=== PATIENT | female | born 1980 | race Caucasian/White ===

== ENCOUNTER 2025-04-30 23:15 | Emergency (ER) | payer BC ==
[2025-05-01] MEDS ORDERED: Sodium Chloride 0.9% 10 ML Syringe FLUSH PRN (00:30)
[2025-05-01 00:54] LABS: BASOPHILS PERCENT AUTO 0.2 % (0.0-1.0); EOSINOPHILS PERCENT AUTO 0.2 % (0.0-6.0); HEMATOCRIT 42.3 % (37.0-47.0); HEMOGLOBIN 13.7 gm/dl (12.0-16.0); IMMATURE GRAN ABSOLUTE AUTO 0.12 K/mm3 (0.00-0.05); IMMATURE GRAN PERCENT AUTO 0.7 % (0.0-0.4); LYMPHOCYTES ABSOLUTE AUTO 1.1 K/mm3 (1.0-4.8); LYMPHOCYTES PERCENT AUTO 6.7 % (24.0-44.0); MEAN CORPUSCULAR HEMOGLOBIN 27.8 pg (28.0-32.0); MEAN CORPUSCULAR HGB CONC 32.4 g/dl (32.0-36.0); MEAN CORPUSCULAR VOLUME 85.8 fl (83.0-99.0); MEAN PLATELET VOLUME 9.6 fl (9.4-12.3); MONOCYTES ABSOLUTE AUTO 1.1 K/mm3 (0.0-0.8); MONOCYTES PERCENT AUTO 6.2 % (0.0-8.0); NEUTROPHILS ABSOLUTE AUTO 14.5 K/mm3 (1.8-7.7); PLATELET COUNT,PLT 230 K/mm3 (150-400); RED BLOOD CELL COUNT 4.93 M/mm3 (4.10-5.30); WHITE BLOOD CELL COUNT,WBC 16.89 K/mm3 (3.9-11.3)
[2025-05-01 01:15] LABS: A/G RATIO 0.9 (1-2); ALBUMIN 3.4 g/dl (3.4-5.0); ANION GAP 14.6 (5-15); BILIRUBIN TOTAL 1.3 mg/dL (0.2-1.0); BUN/CREATININE RATIO 21.4 (14-18); CALCIUM 8.9 mg/dL (8.5-10.1); CREATININE 0.7 mg/dL (0.55-1.02); EST CRCL DRUG DOSING (CG) 86.6 mL/min; MAGNESIUM 1.6 mg/dL (1.8-2.4); POTASSIUM,K 3.6 mEq/L (3.5-5.1); PROTEIN TOTAL,TP 7.1 g/dl (6.4-8.2)
[2025-05-01] MEDS: Sodium Chloride 0.9% 1,000 ML IV ONE (01:15)
[2025-05-01 01:20] LABS: APPEARANCE,URINE CLEAR (Clear); BILIRUBIN,URINE NEGATIVE (Negative); COLOR,URINE YELLOW (Yellow); GLUCOSE,URINE NEGATIVE (Negative); KETONES,URINE 2+ (Negative); LEUKOCYTE ESTERASE,URINE NEGATIVE (Negative); NITRITE,URINE NEGATIVE (Negative); OCCULT BLOOD,URINE 2+ (Negative); PROTEIN,URINE 1+ (Negative); UROBILINOGEN,URINE 0.2 (0.2-1.0)
[2025-05-01 01:41] LABS: RBC,URINE 0-5 /hpf (0-5); WBC,URINE 0-5 /hpf (0-5)
[2025-05-01 01:42] LABS: BACTERIA,URINE FEW /hpf (FEW); MUCUS,URINE MODERATE /hpf (FEW)
[2025-05-01] MEDS: Iopamidol 612 MG/ML 100 ML Bottle IVPUSH ONE (01:42)
[2025-05-01] MEDS: fentaNYL 100 MCG/2 ML SDV IVPUSH ONE (01:45)
[2025-05-01] MEDS: Azithromycin 250 MG Tab PO ONE (03:06)
[2025-05-01] MEDS: Magnesium Oxide 400 MG Tab PO ONE (03:07)
[2025-05-01] MEDS: Ondansetron 4 MG/2 ML SDV IVPUSH ONE (03:07)
== END 2025-05-01 03:20 | disposition home or self-care (01) ==
LOC: JD.ED 23:15
DX: R19.7 Diarrhea, unspecified (principal); Z88.0 Allergy status to penicillin; Z79.899 Other long term (current) drug therapy; Z87.19 Personal history of other diseases of the digestive system
CPT/HCPCS: 36415; 74177; 80053; 81001; 83690; 83735; 84703; 85025; 87493; 96361; 96374; 96375; 99284; A9270; J2405; J3010; J7030; Q9967

== ENCOUNTER 2025-05-01 11:03 | Emergency (ER) | payer BC ==
[2025-05-01] MEDS: Ondansetron 4 MG/2 ML SDV IVPUSH ONE (12:29)
[2025-05-01] MEDS: Sodium Chloride 0.9% 1,500 ML IV ONE (12:29)
[2025-05-01 12:45] LABS: BASOPHILS PERCENT AUTO 0.2 % (0.0-1.0); HEMATOCRIT 43.7 % (37.0-47.0); HEMOGLOBIN 14.3 gm/dl (12.0-16.0); IMMATURE GRAN ABSOLUTE AUTO 0.12 K/mm3 (0.00-0.05); IMMATURE GRAN PERCENT AUTO 0.6 % (0.0-0.4); LYMPHOCYTES ABSOLUTE AUTO 1.3 K/mm3 (1.0-4.8); LYMPHOCYTES PERCENT AUTO 5.8 % (24.0-44.0); MEAN CORPUSCULAR HEMOGLOBIN 27.5 pg (28.0-32.0); MEAN CORPUSCULAR HGB CONC 32.7 g/dl (32.0-36.0); MEAN PLATELET VOLUME 9.5 fl (9.4-12.3); MONOCYTES ABSOLUTE AUTO 1.6 K/mm3 (0.0-0.8); MONOCYTES PERCENT AUTO 7.3 % (0.0-8.0); NEUTROPHILS ABSOLUTE AUTO 18.4 K/mm3 (1.8-7.7); NEUTROPHILS PERCENT AUTO 86.1 % (41.0-71.0); PLATELET COUNT,PLT 230 K/mm3 (150-400)
[2025-05-01 13:16] LABS: A/G RATIO 0.9 (1-2); ALBUMIN 3.4 g/dl (3.4-5.0); ANION GAP 12.5 (5-15); BILIRUBIN TOTAL 1.4 mg/dL (0.2-1.0); BUN/CREATININE RATIO 16.7 (14-18); CALCIUM 8.7 mg/dL (8.5-10.1); CREATININE 0.6 mg/dL (0.55-1.02); EST CRCL DRUG DOSING (CG) 101.04 mL/min; POTASSIUM,K 3.5 mEq/L (3.5-5.1); PROTEIN TOTAL,TP 7.3 g/dl (6.4-8.2)
[2025-05-01 13:23] LABS: SLIDE REVIEW NORMAL SMEAR
[2025-05-01] MEDS: Dicyclomine 20 MG/2 ML SDV IM ONE (14:10)
== END 2025-05-01 14:25 | disposition home or self-care (01) ==
LOC: JD.ED 11:03
DX: K52.9 Noninfective gastroenteritis and colitis, unspecified (principal); Z88.0 Allergy status to penicillin; Z86.16 Personal history of COVID-19; Z79.899 Other long term (current) drug therapy
CPT/HCPCS: 36415; 80053; 83690; 85025; 96361; 96372; 96374; 99284; J0500; J2405; J7030